=== PATIENT | female | born 1985 | race Caucasian/White ===

== ENCOUNTER 2017-05-20 15:58 | Outpatient (CLI) | payer OTHER ==
[~2017-05-20] VITALS: Ht 154.9 cm; Wt 69.5 kg
[~2017-05-20 15:58] MED LIST: IBUP-1223 PO; OXYC-302 PO
[2017-05-20] MEDS ORDERED: PREN1TAB60 PO (16:10)
[2017-05-20 16:25] VITALS: BP 125/83
[2017-05-20 17:15] LABS: AMNISURE NEGATIVE (NEGATIVE)
== END 2017-05-20 18:56 | disposition home or self-care (01) ==
LOC: LDOP 15:58
PROVIDERS: ATTEND Obstetrics & Gynecology
DX: O42.913 Preterm premature rupture of membranes, unspecified as to length of time between rupture and onset of labor, third trimester (principal); Z3A.34 34 weeks gestation of pregnancy
CPT/HCPCS: 59025; 84112; 99201; G0463

== ENCOUNTER 2019-11-16 16:57 | Outpatient (CLI) | payer OTHER ==
[~2019-11-16] VITALS: Ht 154.9 cm; Wt 75.5 kg
[~2019-11-16 16:57] MED LIST changes: +IBUP-1222 PO; +PREN1TAB60 PO
[2019-11-16 17:14] VITALS: BP 138/85
== END 2019-11-16 18:51 | disposition home or self-care (01) ==
LOC: LDOP 16:57
PROVIDERS: ATTEND Obstetrics & Gynecology
DX: O62.9 Abnormality of forces of labor, unspecified (principal); Z3A.37 37 weeks gestation of pregnancy
CPT/HCPCS: 59025

== ENCOUNTER 2019-11-18 20:04 | Outpatient (CLI) | payer OTHER ==
[~2019-11-18] VITALS: Ht 154.9 cm; Wt 75.0 kg
[2019-11-18 20:10] VITALS: BP 132/78
[2019-11-18 21:13] LABS: MICROSCOPIC NOT IND
== END 2019-11-18 21:40 | disposition home or self-care (01) ==
LOC: LDOP 20:04
PROVIDERS: ATTEND Obstetrics & Gynecology
DX: O09.93 Supervision of high risk pregnancy, unspecified, third trimester (principal); O26.893 Other specified pregnancy related conditions, third trimester; R10.9 Unspecified abdominal pain; Z3A.37 37 weeks gestation of pregnancy
CPT/HCPCS: 59025; 81003; 87086

== ENCOUNTER 2019-11-28 10:18 | Inpatient (IN) | payer OTHER ==
[~2019-11-28] VITALS: Ht 154.9 cm; Wt 76.0 kg
[2019-11-28] MEDS ORDERED: D5%-LACTATED RINGERS 1,000 ML IV SCH (10:21)
[2019-11-28] MEDS ORDERED: OXYTOCIN 30U/ 0.9% NaCL 500ML 500 ML IV ONE (10:21)
[2019-11-28] MEDS ORDERED: OXYTOCIN 30U/ 0.9% NaCL 500ML 500 ML IV PRN (10:21)
[2019-11-28] MEDS ORDERED: TERBUTALINE 1 MG/ML, 1ML IVPush PRN (10:30)
[2019-11-28] MEDS ORDERED: ONDANSETRON 2MG/ML, 2ML IVPush PRN (10:30)
[2019-11-28] MEDS ORDERED: SODIUM CHLORIDE FLUSH 10ML SYR IVF PRN (10:30)
[2019-11-28] MEDS ORDERED: FENTANYL PF 100 MCG/2ML IV PRN (10:30)
[2019-11-28] MEDS ORDERED: FENTANYL PF 100 MCG/2ML IVPush PRN (10:30)
[2019-11-28] MEDS ORDERED: TERBUTALINE 1 MG/ML, 1ML SQ PRN (10:30)
[2019-11-28] MEDS: LACTATED RINGERS 1,000 ML IV SCH ×2 (10:40→18:48)
[2019-11-28] MEDS ORDERED: PENICILLIN GK 5,000,000 UNITS in DEXTROSE 5% 100 ML IVPB ONE (11:00)
[2019-11-28 11:04] LABS: BASOPHILS # (AUTO) 0.02 x10^3/uL (0-0.1); BASOPHILS % (AUTO) 0 % (0-1); EOSINOPHILS # (AUTO) 0.08 x10^3/uL (0-0.4); EOSINOPHILS % (AUTO) 1 % (1-7); LYMPHOCYTES # (AUTO) 1.25 x10^3/uL (1-3.4); LYMPHOCYTES % (AUTO) 15 % (22-44); MD NO; MEAN CORPUSCULAR HEMOGLOBIN 29.7 pg (27.0-34.8); MEAN CORPUSCULAR HGB CONC 32.7 g/dL (32.4-35.8); MEAN PLATELET VOLUME 8.3 fL (7.4-10.4); MONOCYTES # (AUTO) 0.81 x10^3/uL (0.2-0.8); MONOCYTES % (AUTO) 10 % (2-9); NEUTROPHILS # (AUTO) 5.95 x10^3/uL (1.8-6.8); NEUTROPHILS % (AUTO) 73 % (42-75); PLATELET COUNT 209 x10^3/uL (130-400); RED BLOOD COUNT 4.59 x10^6/uL (3.82-5.3); RED CELL DISTRIBUTION WIDTH 13.6 % (9.6-15.2)
[2019-11-28] MEDS ORDERED: NEWBORN KIT ONE (11:09)
[2019-11-28] MEDS ORDERED: LIDOCAINE 1%, 20ML ONE (11:09)
[2019-11-28] MEDS ORDERED: MISOPROSTOL 200 MCG TABLET ONE (11:10)
[2019-11-28] MEDS ORDERED: OXYTOCIN 30U/ 0.9% NaCL 500ML 500 ML ONE (11:10)
[2019-11-28 11:55] VITALS: BP 121/81
[2019-11-28] MEDS: PENICILLIN GK 2,500,000 UNITS in DEXTROSE 5% 100 ML IVPB SCH ×3 (15:28→19:20)
[2019-11-28] MEDS ORDERED: EPHEDRINE 50 MG/ML, 1ML ONE (19:18)
[2019-11-28] MEDS ORDERED: FENTANYL/BUPIV./NS/PF 250 ML EPIDCONT ONE (19:20)
[2019-11-28] MEDS ORDERED: BUPIVACAINE 0.25% ONE ×2 (19:20→19:48)
[2019-11-28] MEDS ORDERED: LACTATED RINGERS 1,000 ML IV SCH (19:41)
[2019-11-28] MEDS ORDERED: FENTANYL/BUPIV./NS/PF 250 ML EPIDCONT SCH (19:41)
[2019-11-28] MEDS ORDERED: LACTATED RINGERS 1,000 ML IVBOLUS PRN (20:00)
[2019-11-28] MEDS ORDERED: EPHEDRINE 50 MG/ML, 1ML IVPush PRN (20:00)
[2019-11-28] MEDS ORDERED: CALCIUM CARBONATE 500 MG TAB.CHEW PO PRN (21:30)
[2019-11-28] MEDS ORDERED: OXYcodone/APAP 5/325MG TABLET PO PRN ×2 (21:30)
[2019-11-28] MEDS: OXYTOCIN 30U/ 0.9% NaCL 500ML 500 ML IV SCH (21:30)
[2019-11-28] MEDS ORDERED: ONDANSETRON 2MG/ML, 2ML IV PRN (21:30)
[2019-11-28] MEDS ORDERED: ACETAMINOPHEN 325 MG TABLET PO PRN (21:30)
[2019-11-28] MEDS ORDERED: SIMETHICONE 80 MG CHEW TAB PO PRN (21:30)
[2019-11-28] MEDS ORDERED: MISOPROSTOL 200 MCG TABLET PR PRN (21:30)
[2019-11-28] MEDS ORDERED: DOCUSATE 100 MG CAPSULE PO PRN (21:30)
[2019-11-28 23:20] VITALS: BP 138/84
[2019-11-29] MEDS: IBUPROFEN 600 MG TABLET PO PRN ×2 (01:51→08:03)
[2019-11-29 04:00] VITALS: BP 124/82
[2019-11-29 04:32] LABS: MEAN CORPUSCULAR HEMOGLOBIN 29.5 pg (27.0-34.8); MEAN CORPUSCULAR HGB CONC 32.4 g/dL (32.4-35.8); MEAN PLATELET VOLUME 8.4 fL (7.4-10.4); PLATELET COUNT 210 x10^3/uL (130-400); RED BLOOD COUNT 4.53 x10^6/uL (3.82-5.3); RED CELL DISTRIBUTION WIDTH 13.3 % (9.6-15.2)
[2019-11-29 05:13] LABS: BASOPHILS # (AUTO) 0.05 x10^3/uL (0-0.1); BASOPHILS % (AUTO) 0 % (0-1); EOSINOPHILS # (AUTO) 0.03 x10^3/uL (0-0.4); EOSINOPHILS % (AUTO) 0 % (1-7); LYMPHOCYTES # (AUTO) 1.17 x10^3/uL (1-3.4); LYMPHOCYTES % (AUTO) 9 % (22-44); MD SCAN; MONOCYTES # (AUTO) 0.87 x10^3/uL (0.2-0.8); MONOCYTES % (AUTO) 6 % (2-9); NEUTROPHILS % (AUTO) 84 % (42-75)
[2019-11-29] MEDS: OXYTOCIN 30U/ 0.9% NaCL 500ML 500 ML IV SCH ×2 (07:01→17:01)
[2019-11-29] MEDS ORDERED: IBUP-1222 PO (07:01)
[2019-11-29 07:50] VITALS: BP 107/71
[2019-11-29] MEDS ORDERED: PRENATAL VIT/IRON/FA 1 EACH TABLET PO SCH (09:00)
[2019-11-29 12:09] VITALS: BP 128/82
[2019-11-29 16:57] VITALS: BP 108/74
== END 2019-11-29 22:32 | disposition home or self-care (01) | DRG 807 ==
LOC: LDIP 10:18 → 2NW 23:05
PROVIDERS: ADMIT Obstetrics & Gynecology; ATTEND Obstetrics & Gynecology
PROC: 0KQM0ZZ Repair Perineum Muscle, Open Approach (ICD-10-PCS; principal; 2019-11-28)
PROC: 10E0XZZ Delivery of Products of Conception, External Approach (ICD-10-PCS; 2019-11-28)
PROC: 3E0R3BZ Introduction of Anesthetic Agent into Spinal Canal, Percutaneous Approach (ICD-10-PCS; 2019-11-28)
PROC: 00HU33Z Insertion of Infusion Device into Spinal Canal, Percutaneous Approach (ICD-10-PCS; 2019-11-28)
PROC: 10907ZC Drainage of Amniotic Fluid, Therapeutic from Products of Conception, Via Natural or Artificial Opening (ICD-10-PCS; 2019-11-28)
DX: O99.824 Streptococcus B carrier state complicating childbirth (principal); Z37.0 Single live birth; Z3A.39 39 weeks gestation of pregnancy; Z80.49 Family history of malignant neoplasm of other genital organs; Z83.3 Family history of diabetes mellitus; O70.1 Second degree perineal laceration during delivery; Z88.5 Allergy status to narcotic agent
CPT/HCPCS: 36415; J7121; 85025; 86592; 86850; 86900; 87635; G0378; J2540; J3490; J2590; J3010; J7120